=== PATIENT | male | born 1950 | race Caucasian/White ===

== ENCOUNTER 2019-05-04 12:37 | Inpatient (IN) | payer OTHER ==
[~2019-05-04] VITALS: Ht 185.4 cm; Wt 124.7 kg
[2019-05-04] MEDS ORDERED: COZAAR100 MG PO (12:57)
[2019-05-04] MEDS ORDERED: TIROSINT75 MCG PO (12:58)
[2019-05-04] MEDS ORDERED: HYDROCHLOROTHIA25 MG PO (12:58)
[2019-05-04] MEDS ORDERED: LASIX40 MG PO (12:58)
[2019-05-04] MEDS ORDERED: VERELAN240 MG PO (12:58)
[2019-05-04] MEDS ORDERED: AMLODIPINE-OLM1 EACH PO (12:59)
[2019-05-04] MEDS ORDERED: EZETIMIBE10 MG PO (12:59)
[2019-05-04] MEDS ORDERED: ASPIR 8181 MG PO (13:00)
[2019-05-07] MEDS ORDERED: ELIQUIS2.5 MG PO (14:40)
[2019-05-07] MEDS ORDERED: LEVOTHYROXINE88 MCG PO (14:45)
== END 2019-05-07 15:54 | disposition home or self-care (01) | DRG 291 ==
LOC: ER 12:37 → SEC-K 15:10 → MEDJ 15:10
PROVIDERS: Surgery; ADMIT Internal Medicine
PROC: B246ZZZ Ultrasonography of Right and Left Heart (ICD-10-PCS; 2019-05-04)
PROC: 4A12X4Z Monitoring of Cardiac Electrical Activity, External Approach (ICD-10-PCS; 2019-05-04)
PROC: 05H633Z Insertion of Infusion Device into Left Subclavian Vein, Percutaneous Approach (ICD-10-PCS; principal; 2019-05-06 13:15)
DX: I11.0 Hypertensive heart disease with heart failure (principal); I50.21 Acute systolic (congestive) heart failure; C20 Malignant neoplasm of rectum; I48.0 Paroxysmal atrial fibrillation; E03.8 Other specified hypothyroidism; I08.1 Rheumatic disorders of both mitral and tricuspid valves; E11.65 Type 2 diabetes mellitus with hyperglycemia; Z79.01 Long term (current) use of anticoagulants; Z45.2 Encounter for adjustment and management of vascular access device; Z79.4 Long term (current) use of insulin

== ENCOUNTER 2019-12-26 09:32 | Day surgery (SDC) | payer OTHER ==
[~2019-12-26 09:32] MED LIST: AMLODIPINE-OLM1 EACH PO; ASPIR 8181 MG PO; COZAAR100 MG PO; ELIQUIS2.5 MG PO; EZETIMIBE10 MG PO; HYDROCHLOROTHIA25 MG PO; LASIX40 MG PO; LEVOTHYROXINE88 MCG PO; TIROSINT75 MCG PO; VERELAN240 MG PO
== END 2019-12-26 13:20 | disposition home or self-care (01) ==
LOC: AMB-ENDOS 09:32
PROVIDERS: ATTEND Surgery
DX: D12.5 Benign neoplasm of sigmoid colon (principal); Z20.828 Contact with and (suspected) exposure to other viral communicable diseases

== ENCOUNTER 2020-11-19 06:25 | Day surgery (SDC) | payer OTHER | END 2020-11-19 12:45 | disposition home or self-care (01) | LOC: AMB-ENDOS 06:25 | PROVIDERS: ATTEND Surgery | DX: K62.89 Other specified diseases of anus and rectum (principal); K62.7 Radiation proctitis; Z20.822 Contact with and (suspected) exposure to COVID-19 ==

== ENCOUNTER 2023-05-22 07:03 | Day surgery (SDC) | payer OTHER ==
[~2023-05-22] VITALS: Ht 188 cm; Wt 122.5 kg
[~2023-05-22 07:03] MED LIST changes: +METFORMIN HCL850 M1 PO; +OZEMPIC0.25 MG/02
[2023-05-22] MEDS ORDERED: CEFAZOLIN SODIUM 1,000 MG VIAL ONE (10:54)
[2023-05-22] MEDS ORDERED: LIDOCAINE HCL 1%/Epi 20ML VIAL IJ ONE ×2 (11:31→13:00)
[2023-05-22] MEDS ORDERED: TRAM1TAB98 PO (12:12)
[2023-05-22] MEDS ORDERED: CEFAZOLIN SODIUM 1,000 MG VIAL IV SCH (13:00)
== END 2023-05-22 14:10 | disposition home or self-care (01) ==
LOC: CIR.AMB 07:03
PROVIDERS: ATTEND Surgery
DX: C20 Malignant neoplasm of rectum (principal); Z20.822 Contact with and (suspected) exposure to COVID-19